=== PATIENT | male | born 1985 | race Caucasian/White ===

== ENCOUNTER → 2024-02-26 | Outpatient (CLI) | payer OTHER | LOC: M RAD 08:03 | PROVIDERS: ATTEND Orthopaedic Surgery | DX: S62.314A Displaced fracture of base of fourth metacarpal bone, right hand, initial encounter for closed fracture (principal); Y93.9 Activity, unspecified; Y92.9 Unspecified place or not applicable ==

== ENCOUNTER → 2024-03-08 | Outpatient (CLI) | payer OTHER | LOC: M SOG 14:05 | PROVIDERS: ATTEND Orthopaedic Surgery Hand Surgery | DX: S62.314A Displaced fracture of base of fourth metacarpal bone, right hand, initial encounter for closed fracture (principal); Y93.9 Activity, unspecified; Y92.9 Unspecified place or not applicable ==